=== PATIENT | male | born 1965 | race Caucasian/White ===

== ENCOUNTER 2017-01-25 16:37 | Observation (INO) | payer BC ==
[~2017-01-25] VITALS: Ht 182.9 cm; Wt 73.2 kg
[2017-01-25 17:19] LABS: EOSINOPHIL (%) 1.9 % (0-5); EOSINOPHIL COUNT 0.1 K/uL (0-0.3); HEMATOCRIT 42.3 % (38.0-50.0); IMMATURE GRANULOCYTE (%) 0.1 % (0.0-0.7); INSTRUMENT ABS NEUTROPHIL CT 3.9 K/uL; LYMPHOCYTE COUNT 2.1 K/uL (1.0-2.8); MCH 32.1 PG (29.0-34.0); MCHC 33.6 G/DL (30.0-36.0); MCV 95.7 FL (86-99); MEAN PLAT.VOLUME 8.8 uM^3 (9.0-12.4); MONOCYTE COUNT 0.6 K/uL (0-0.8); NEUTROPHIL (%) 58.1 % (45-76); NEUTROPHIL COUNT 3.9 K/uL (1.8-6.4); PLATELET COUNT 218 K/uL (156-360); RBC DIS.WIDTH-CV 12.4 % (11.8-14.6); RBC DIS.WIDTH-SD 43.8 % (39-53); RED BLOOD COUNT 4.42 M/uL (4.00-5.50); WHITE BLOOD COUNT 6.8 K/uL (4.1-10.2)
[2017-01-25 18:05] LABS: TROP-I INTERPRETATION NEGATIVE; TROPONIN-I < 0.01 ng/mL (0.0-0.30)
[2017-01-25 18:11] LABS: CHLORIDE 105 mEq/L (99-109); POTASSIUM 3.9 mEq/L (3.7-5.4); SODIUM 136 mEq/L (136-147)
[2017-01-25 18:13] LABS: GLUCOSE 114 mg/dL (70-99)
[2017-01-25 18:15] LABS: ANION GAP 6 MEQ/L (2-14)
[2017-01-25 18:17] LABS: ALKALINE PHOSPHATASE 95 IU/L (3-129); GFR ESTIMATE (CALCULATED) > 59 mL/min/
[2017-01-25 18:18] LABS: UREA NITROGEN (BUN) 11 mg/dL (9-23)
[2017-01-25] MEDS ORDERED: GINKGO BILOBA60 M3 PO (19:13)
[2017-01-25] MEDS ORDERED: HYDROCODON-ACE1 EAC7 PO (19:13)
[2017-01-25 21:10] LABS: TROP-I INTERPRETATION NEGATIVE; TROPONIN-I < 0.01 ng/mL (0.0-0.30)
[2017-01-25 22:22] VITALS: BP 114/74
[2017-01-25 22:56] LABS: D-DIMER ELISA 2.94 mg/L FEU (< 0.57)
[2017-01-26 00:39] VITALS: BP 115/57
[2017-01-26 01:06] LABS: TROP-I INTERPRETATION NEGATIVE; TROPONIN-I < 0.01 ng/mL (0.0-0.30)
[2017-01-26 02:08] LABS: HDL CHOLESTEROL 35 MG/DL (Desirable>=40); LDL CHOLESTEROL 108 mg/dL (Desirable<100); NON-HDL CHOLESTEROL 124 mg/dL (Desirable<160); TOTAL CHOLESTEROL 159 mg/dL (Desirable<200); TRIGLYCERIDES 80 MG/DL (Normal: <150)
[2017-01-26 04:54] VITALS: BP 103/72
[2017-01-26 06:33] LABS: TROP-I INTERPRETATION NEGATIVE; TROPONIN-I < 0.01 ng/mL (0.0-0.30)
[2017-01-26 08:39] VITALS: BP 116/74
[2017-01-26 11:32] VITALS: BP 120/69
[2017-01-26] MEDS ORDERED: NICOTINE PATCH1 EAC1 TD (12:28)
[2017-01-26] MEDS ORDERED: TYLENOL REGULA325 MG PO (12:28)
[2017-01-26] MEDS ORDERED: TRAMADOL HCL50 MG PO (12:28)
[2017-01-26] MEDS ORDERED: ASPIR-LOW81 MG PO (12:28)
[2017-01-26] MEDS ORDERED: LIPITOR40 MG PO (12:38)
== END 2017-01-26 13:27 | disposition home or self-care (01) ==
LOC: EME 16:37 → EDOF 19:15 → 5WEST 21:33
PROVIDERS: Emergency Medicine; Physician Assistant Medical
DX: T40.2X5A Adverse effect of other opioids, initial encounter (principal); R00.1 Bradycardia, unspecified; R55 Syncope and collapse; R94.31 Abnormal electrocardiogram [ECG] [EKG]; Z72.0 Tobacco use; R01.1 Cardiac murmur, unspecified
CPT/HCPCS: 71010; 71275; 80053; 80061; 83880; 84484; 85025; 85379; 93005; 99281; 99285; G0378; J0461; J1650; J7030

== ENCOUNTER 2018-02-28 21:02 | Emergency (ER) | payer BC ==
[~2018-02-28] VITALS: Ht 182.9 cm; Wt 71.8 kg
[~2018-02-28 21:02] MED LIST: ASPIR-LOW81 MG PO; GINKGO BILOBA60 M3 PO; HYDROCODON-ACE1 EAC7 PO; LIPITOR40 MG PO; NICOTINE PATCH1 EAC1 TD; TRAMADOL HCL50 MG PO; TYLENOL REGULA325 MG PO
[2018-02-28 21:30] LABS: BASOPHIL (%) 0.4 % (0-1); EOSINOPHIL (%) 2.2 % (0-5); EOSINOPHIL COUNT 0.2 K/uL (0-0.3); HEMATOCRIT 38.1 % (38.0-50.0); HEMOGLOBIN 12.9 G/DL (12.5-16.6); IMMATURE GRANULOCYTE (%) 0.1 % (0.0-0.7); LYMPHOCYTE (%) 34.9 % (15-42); LYMPHOCYTE COUNT 2.3 K/uL (1.0-2.8); MCHC 33.9 G/DL (30.0-36.0); MCV 94.5 FL (86-99); MONOCYTE (%) 12.1 % (3-12); MONOCYTE COUNT 0.8 K/uL (0-0.8); NEUTROPHIL (%) 50.3 % (45-76); NEUTROPHIL COUNT 3.4 K/uL (1.8-6.4); PLATELET COUNT 221 K/uL (156-360); RBC DIS.WIDTH-CV 12.3 % (11.8-14.6); RED BLOOD COUNT 4.03 M/uL (4.00-5.50); WHITE BLOOD COUNT 6.7 K/uL (4.1-10.2)
[2018-02-28 21:43] LABS: ALBUMIN 3.5 g/dL (3.2-4.8); CHLORIDE 103 mEq/L (99-109); POTASSIUM 3.9 mEq/L (3.7-5.4); SODIUM 134 mEq/L (136-147)
[2018-02-28 21:45] LABS: GLUCOSE 97 mg/dL (70-99); TOTAL PROTEIN 7.5 g/dL (6.4-8.3)
[2018-02-28 21:47] LABS: TOTAL BILIRUBIN 0.9 mg/dL (0.0-1.0)
[2018-02-28 21:48] LABS: SERUM ETHYL ALCOHOL 53 mg/dL
[2018-02-28 21:49] LABS: ALKALINE PHOSPHATASE 122 IU/L (3-129); CREATININE 0.9 mg/dL (0.6-1.3); GFR ESTIMATE (CALCULATED) > 59 mL/min/ (58.99-99999)
[2018-02-28 21:50] LABS: UREA NITROGEN (BUN) 14 mg/dL (9-23)
[2018-02-28 21:51] LABS: AST (GOT) 14 IU/L (2-34)
[2018-02-28 21:52] LABS: ALT (GPT) 15 IU/L (3-49)
[2018-02-28 21:54] LABS: TROP-I INTERPRETATION NEGATIVE; TROPONIN-I < 0.01 ng/mL (0.0-0.30)
[2018-02-28 23:18] VITALS: BP 112/77
== END 2018-02-28 23:21 | disposition home or self-care (01) ==
LOC: EME → EDBD 21:02 → EME 21:02
PROVIDERS: Emergency Medicine
DX: R55 Syncope and collapse (principal); F17.200 Nicotine dependence, unspecified, uncomplicated
CPT/HCPCS: 71046; 80053; 84484; 85025; 93005; 99281; 99284; G0480; J7030